=== PATIENT | female | born 1935 | race Caucasian/White ===

== ENCOUNTER 2018-10-09 17:43 | Inpatient (IN) ==
--- NOTE | 2018-10-09 18:20 | PROVIDER DOCUMENTATION ---
HPI-Chest Pain - General Chief Complaint: Chest Pain Stated Complaint: HURT RIBS Time Seen by Provider: 10/09/18 18:16 Source: patient Allergies/Adverse Reactions: Patient Allergies Allergy/AdvReac Type Severity Reaction Status Date / Time No Known Allergies Allergy Verified 10/09/18 17:56 Home Medications: Home Medication List Medication Instructions Recorded Confirmed Last Taken Type ATORVAstatin [Lipitor] 10 mg PO DAILY 06/07/13 06/07/13 Unknown History Albuterol Sulfate [Proair Hfa] 8.5 gm IH 06/07/13 06/07/13 Unknown History Aspirin 81 mg PO DAILY 06/07/13 06/07/13 Unknown History Cholecalciferol (Vitamin D3) 2,000 unit PO 06/07/13 06/07/13 Unknown History [Vitamin D-3] Cyanocobalamin (Vitamin B-12) 50 mcg PO 06/07/13 06/07/13 Unknown History [Vitamin B-12] Estrogens, Conjugated [Premarin] 0.3 mg PO DAILY 06/07/13 06/07/13 Unknown History Glimepiride 06/07/13 06/07/13 Unknown History Hydroxyzine [Atarax] 10 mg PO TID PRN PRN #30 tablet 06/07/13 Unknown Rx Meloxicam [Mobic] 7.5 mg PO DAILY 06/07/13 06/07/13 Unknown History Metformin [Glucophage] 500 mg PO WBREAKFAST 06/07/13 06/07/13 Unknown History Omeprazole 40 mg PO 06/07/13 06/07/13 Unknown History Pentoxifylline 400 mg PO 06/07/13 06/07/13 Unknown History Vitamin C 500 mg/15 ml Liquid 06/07/13 06/07/13 Unknown History Vitamin E 30 ml TP 06/07/13 06/07/13 Unknown History - History of Present Illness-CP Nature of Presenting Problem: patient is a 83 yowf presenting to the ED for substernal chest pain. she reports this pain started 2 days ago and it comes and goes. describes the pain as an ac quoc and burning pain. she denies any SOB, dizziness, NVD, syncope, diaphoresis, or any other symptoms. patient reports pain on palpation. she is in no distress. non toxic in appearance. Location: reports: substernal Chest Pain Radiation: reports: no radiation Quality of Pain: reports: aching, burning Severity in ED: mild Onset/Duration: 2 days ago Timing: intermittent Context/Activities at Onset: reports: none Associated Symptoms: denies: back pain, diaphoresis, dizziness, fatigue, fever/chills, nausea, shortness of breath, syncope, vomiting Nitro Today/Relief: no nitro taken today Aspirin Treatment Today: no aspirin today Similar Symptoms Previously?: No Recently Seen Here or By Another Healthcare Provider: No Review of Systems - Adult - REVIEW OF SYSTEMS - ADULT Constitutional: reports: no symptoms reported. denies: chills, fever Eyes: reports: no symptoms reported Ears, Nose, Mouth & Throat: reports: no symptoms reported Cardiovascular: reports: chest pain. denies: palpitations, syncope Respiratory: reports: no symptoms reported. denies: cough, shortness of breath, wheezing Gastrointestinal: reports: no symptoms reported. denies: abdominal pain, diarrhea, nausea, vomiting Genitourinary: reports: no symptoms reported Musculoskeletal: reports: no symptoms reported. denies: back pain Integumentary: reports: no symptoms reported Neurological: reports: no symptoms reported. denies: dizziness/vertigo, headache/migraines Psychiatric: reports: no symptoms reported Endocrine: reports: no symptoms reported Hematologic/Lymphatic: reports: no symptoms reported Allergic/Immunologic: reports: no symptoms reported All Other Systems: Reviewed and Negative Past History - Adult - PAST MEDICAL HISTORY-ADULT Review of Records: reports: Old Records Reviewed, Nursing Assessment Review, Medications Reviewed, Social history reviewed & non-contributory. Major Childhood Illnesses: reports: denies history Cardiovascular: reports: HTN Respiratory: reports: asthma Gastrointestinal: reports: denies history Obstetrical/Gynecological: reports: denies history Genitourinary: reports: denies history Musculoskeletal: reports: denies history Neurological: reports: denies history Endocrine/Immune: reports: Diabetes Other Conditions: reports: denies history - PRIOR SURGERIES/PROCEDURES Surgical/Procedure History: reports: cholecystectomy, hysterectomy, other (oopherectomy) - FAMILY HISTORY Family History: reviewed, not pertinent - SOCIAL HISTORY Smoking: denies Physical Exam-General - PHYSICAL EXAM-ADULT Initial Vital Signs Reviewed: Yes - CONSTITUTIONAL General Appearance: appears well, alert, no apparent distress, thin - EYES Eyes: PERRL/EOMI - HEAD, EARS, NOSE, MOUTH & THROAT HENMT: normocephalic/atraumatic, moist mucous membranes, normal ENT inspection - NECK Neck: non-tender, full range of motion, supple - RESPIRATORY Respiratory: lungs clear, normal breath sounds, no pleuratic chest pain, no respiratory distress, no accessory muscle use, other (pain to substernal area) - CARDIOVASCULAR Cardiovascular: regular rate, rhythm, no edema, no JVD - GASTROINTESTINAL (ABDOMEN) Abdominal Exam: normal bowel sounds, non tender, soft - LYMPHATIC Lymphatic: no adenopathy - MUSCULOSKELETAL Back Exam: normal inspection, no CVA tenderness, no vertebral tenderness Extremity: normal range of motion, non-tender, normal gait - SKIN Integumentary: normal color, normal turgor, warm/dry - NEUROLOGIC Neurologic: grossly normal, no motor/sensory deficits - PSYCHIATRIC Psych/Mental Status: normal mood/affect, normal thought content, normal thought process, oriented x 3 - HEART Score HEART Score: History: Highly Suspicious HEART Score: ECG: Normal HEART Score: Age: > or = 65 Years HEART Score: Risk Factors for Atherosclerotic Disease: > or = 3 Risk Factors or History of Atherosclerotic Disease HEART Score: Troponin: < or = Normal Limit Total HEART Score:: 6 Progress - PLAN OF CARE/RESULTS Progress/Plan/Lab Results: Vital Signs - 8 hr 10/09/18 17:47 Temperature 98.1 F Pulse Rate 91 H Respiratory Rate 20 Blood Pressure 173/80 O2 Sat by Pulse Oximetry 97 Laboratory Results - last 24 hr 10/09/18 10/09/18 10/09/18 18:35 18:35 18:35 WBC 6.64 RBC 4.05 L Hgb 11.5 L Hct 35.1 L MCV 86.7 MCH 28.4 MCHC 32.8 L RDW Std Deviation 13.9 Plt Count 179 MPV 10.3 Immature Gran % (Auto) 0.2 Neut % (Auto) 75.7 H Lymph % (Auto) 14.3 L Grundy % (Auto) 8.1 Eos % (Auto) 1.5 Baso % (Auto) 0.2 Immature Gran # (Auto) 0.01 Neut # (Auto) 5.03 Lymph # (Auto) 0.95 L Grundy # (Auto) 0.54 Eos # (Auto) 0.10 Baso # (Auto) 0.01 PT INR PTT (Actin FS) Specimen Type Sample Site pH pCO2 pO2 HCO3 Base Excess Oxyhemoglobin ABG O2 Sat (Calculated) ABG O2 Saturation ABG Carboxyhemoglobin ABG Methemoglobin Bob Test A-a O2 Difference Total Hemoglobin Lactate Blood Gas Modality FiO2 % Sodium Potassium Chloride Carbon Dioxide Anion Gap BUN Creatinine Estimated GFR/1.73 m2 BUN/Creatinine Ratio Glucose Calculated Osmolality Calcium Total Bilirubin AST ALT Alkaline Phosphatase Creatine Kinase 78 Troponin T < 0.010 Total Protein Albumin Globulin Albumin/Globulin Ratio Acetone Level 10/09/18 10/09/18 10/09/18 18:35 18:35 18:35 WBC RBC Hgb Hct MCV MCH MCHC RDW Std Deviation Plt Count MPV Immature Gran % (Auto) Neut % (Auto) Lymph % (Auto) Grundy % (Auto) Eos % (Auto) Baso % (Auto) Immature Gran # (Auto) Neut # (Auto) Lymph # (Auto) Grundy # (Auto) Eos # (Auto) Baso # (Auto) PT 15.5 INR 1.17 PTT (Actin FS) 30.6 Specimen Type Sample Site pH pCO2 pO2 HCO3 Base Excess Oxyhemoglobin ABG O2 Sat (Calculated) ABG O2 Saturation ABG Carboxyhemoglobin ABG Methemoglobin Bob Test A-a O2 Difference Total Hemoglobin Lactate Blood Gas Modality FiO2 % Sodium 133 L Potassium 4.2 Chloride 96 L Carbon Dioxide 25 Anion Gap 13 BUN 21 Creatinine 0.9 Estimated GFR/1.73 m2 60 BUN/Creatinine Ratio 23 Glucose 518 H* Calculated Osmolality 293 Calcium 8.7 L Total Bilirubin 0.70 AST 16 ALT 7 L Alkaline Phosphatase 91 Creatine Kinase Troponin T Total Protein 7.9 Albumin 3.9 Globulin 4.0 Albumin/Globulin Ratio 1.0 Acetone Level NEGATIVE 10/09/18 20:09 WBC RBC Hgb Hct MCV MCH MCHC RDW Std Deviation Plt Count MPV Immature Gran % (Auto) Neut % (Auto) Lymph % (Auto) Grundy % (Auto) Eos % (Auto) Baso % (Auto) Immature Gran # (Auto) Neut # (Auto) Lymph # (Auto) Grundy # (Auto) Eos # (Auto) Baso # (Auto) PT INR PTT (Actin FS) Specimen Type ARTERIAL Sample Site R BRACHIAL pH 7.50 H pCO2 35 pO2 76 HCO3 28.1 H Base Excess 4.1 H Oxyhemoglobin 95.5 ABG O2 Sat (Calculated) 15.5 ABG O2 Saturation 98.8 ABG Carboxyhemoglobin 2.10 ABG Methemoglobin 1.2 Bob Test YES A-a O2 Difference 30.0 Total Hemoglobin 11.5 Lactate 1.70 Blood Gas Modality ROOM AIR FiO2 % 21.0 Sodium Potassium Chloride Carbon Dioxide Anion Gap BUN Creatinine Estimated GFR/1.73 m2 BUN/Creatinine Ratio Glucose Calculated Osmolality Calcium Total Bilirubin AST ALT Alkaline Phosphatase Creatine Kinase Troponin T Total Protein Albumin Globulin Albumin/Globulin Ratio Acetone Level Orders Category Date Time Status Admit - [facility] Routine AdmDCTranf 10/09/18 20:37 Active Activity - Up Ad Arabella ORDERED Care 10/09/18 20:37 Active Call Admitting on Arrival AT ADMISSION Care 10/09/18 20:37 Active Neurological Check PRN Care 10/09/18 20:37 Active Resuscitation Status Routine Care 10/09/18 20:37 Ordered Saline Loc DIRECTED Care 10/09/18 20:37 Active Vital Signs Order ROUTINE Care 10/09/18 20:37 Active Z-Document. for Tele Applied ORDERED Care 10/09/18 20:37 Active Heart Healthy Diet Diet 10/09/18 20:[address] THORAX W/O CONTRAST [CT] Stat Exams 10/09/18 20:39 Ordered cxr [CHEST-2 VIEWS] [RAD] Stat Exams 10/09/18 17:57 Completed ABG [RESP] Routine Lab 10/09/18 20:09 Completed CBC WITH ELECTRONIC DIFF [HEME] Stat Lab 10/09/18 18:35 Completed CK PROFILE [SP CHEM] Q6HR Lab 10/10/18 02:00 Ordered CK PROFILE [SP CHEM] Q6HR Lab 10/10/18 08:00 Ordered CK PROFILE [SP CHEM] Q6HR Lab 10/10/18 14:00 Ordered CK PROFILE [SP CHEM] Stat Lab 10/09/18 18:35 Completed COMPREHENSIVE METABOLIC PANEL [CHEM] Stat Lab 10/09/18 18:35 Completed Ketone [ACETONE SERUM] [CHEM] Stat Lab 10/09/18 18:35 Completed PROTIME WITH INR [COAG] Stat Lab 10/09/18 18:35 Completed PTT [COAG] Stat Lab 10/09/18 18:35 Completed TROPONIN T Q6HR Lab 10/10/18 02:00 Ordered TROPONIN T Q6HR Lab 10/10/18 08:00 Ordered TROPONIN T Q6HR Lab 10/10/18 14:00 Ordered TROPONIN T Stat Lab 10/09/18 18:[address] W/POSS RFLX CULT [URINALYSIS] Stat Lab 10/09/18 19:40 Uncollected 0.9% Sodium Chloride Inj [Ns] 1,000 ml Med 10/09/18 20:37 Active IV 75 mls/hr Insulin Human Regular (Humble [Humulin R (Humble)] Med 10/09/18 19:55 Discontinued 10 units .ROUTE .STK-MED ONE Insulin Human Regular [Humulin R] Med 10/09/18 19:45 Discontinued 10 unit IV NOW ONE Piperacillin/Tazobactam [Zosyn] 3.375 gm Med 10/09/18 20:45 Ordered 0.9% Sodium Chloride Inj [Ns] 50 ml IV Q6H Telemetry [OM.EQ] Routine Oth 10/09/18 20:37 Active EKG [EKG] Stat Ther 10/09/18 17:57 Draft Limited Echocardiogram Stat Ther 10/10/18 06:00 Ordered Transfer/Admit Order [TRANSFER] Routine Transfer 10/09/18 20:43 Ordered discussed plan of care with patient- she understands and agrees with plan of care and denies any questions at this time. discussed plan of care with Dr. Artis- he suggests admission. called hospitalist. Result Diagrams: 10/09/18 18:35 10/09/18 18:35 - EKG 1 Time of EKG reading by physician:: 18:09 EKG Read and Signed by:: Mehran Mcgowan EKG Interpretation (*Must complete 3 of following elements*): Normal Rate: 86 Rhythm: sinus [place]: normal QRS: normal NV Interval: normal ST Wave: normal - XRAY 1 XRAY Study: Chest Impression: See EMR Report (Signed EXAM: CHEST-2 VIEWS HISTORY: chest pain TECHNIQUE: Chest two views COMPARISON: 09/22/2015 FINDINGS: Poor inspiratory effort. No cardiomegaly. There are increased interstitial markings throughout both lungs. These are more prominent than on the prior study. No pleural effusions. There is a compression fracture to the T12 vertebra which was not present on the prior exam. IMPRESSION: Worsening fibrosis versus fibrosis and underlying infiltrates. Electronically signed by Anand Lacey 10/09/2018 7:11 PM 10/09/18 191 Interpreting Physician: Anand Lacey MD Dictated Date/Time: 10/09/181909 cc: Mehran Mcgowan MD; Shital James MD) - CONSULTS/PCP/HOSPITALIST Notification #1 *Consult/PCP/Hospitalist*: Dr. Diez Time Discussed: 20:30 Reason/Comments: admit for CP Consult Disposition: Admit Departure - Departure Date of Disposition Decision: 10/09/18 Time of Disposition Decision: 19:38 DIAGNOSIS: Chest pain Qualifiers: Chest pain type: unspecified Qualified Code(s): R07.9 - Chest pain, unspecified Disposition: ADMITTED INPATIENT 09 Certified Medical Emergency: Emergent Condition: Stable Referrals and Follow-Ups: Shital James MD [Primary Care Provider] - - Critical Care Note This patient required my direct & personal management of CC.: No Attestation - Physician/ NICOLE Attestation Patient care was provided by Advanced Practice Provider:: Yes Advanced Practice Provider:: Guera Lopez Advanced Practice Provider documentation review:: The Mid-level provider documentation, treatment plan and medical decision making was reviewed by the physician who agrees with all treatment and medical decision making by the P. The physician spent face to face time with patient:: No Advanced Practice Provider documentation review:: Supervising physician onsite and consulted in the evaluation and care of this patient. The physician did not have a face to face encounter with the patient.
--- NOTE | 2018-10-09 18:30 | EKG Report ---
Test Performed on : 10/09/2018 6:03:33 PM Test Reason : chest pain Blood Pressure : / mmHG Vent. Rate : 086 BPM Atrial Rate : 086 BPM P-R Int : 164 ms QRS Dur : 090 ms QT Int : 358 ms P-R-T Axes : 074 077 068 degrees QTc Int : 428 ms Normal sinus rhythm. Normal ECG No previous ECGs available Unconfirmed Result
[2018-10-09 18:54] LABS: BASO# 0.01 X1000 (0.0-0.2); BASO% 0.2 % (0.0-0.8); EOS% 1.5 % (0.0-10.0); HEMATOCRIT 35.1 % (37.0-47.0); HEMOGLOBIN 11.5 g/dL (12.0-16.0); IMM GRAN# 0.01 X1000 (0.0-0.04); IMM GRAN% 0.2 % (0.0-0.5); LYMPH# 0.95 X1000 (1.2-3.4); LYMPH% 14.3 % (20.5-51.1); MCH 28.4 PG (27-31); MCHC 32.8 g/dL (33-37); MCV 86.7 FL (81-99); MONO# 0.54 X1000 (0.11-0.59); MONO% 8.1 % (1.7-9.3); MPV 10.3 FL (7.4-10.4); NEUT# 5.03 X1000 (1.4-6.5); NEUT% 75.7 % (42.2-75.2); PLT 179 X1000 (130-400); RBC 4.05 XMIL (4.2-5.4); RDW 13.9 % (11.5-14.5); WBC 6.64 X1000 (4.8-10.8)
--- NOTE | 2018-10-09 19:14 | Diag Imaging Result Doc PS360 ---
EXAM: CHEST-2 VIEWS HISTORY: chest pain TECHNIQUE: Chest two views COMPARISON: 09/22/2015 FINDINGS: Poor inspiratory effort. No cardiomegaly. There are increased interstitial markings throughout both lungs. These are more prominent than on the prior study. No pleural effusions. There is a compression fracture to the T12 vertebra which was not present on the prior exam. IMPRESSION: Worsening fibrosis versus fibrosis and underlying infiltrates. Electronically signed by Anand Lacey 10/09/2018 7:11 PM
[2018-10-09 19:19] LABS: INR 1.17; PROTIME 15.5 Seconds (11.0-16.0)
[2018-10-09 19:20] LABS: PTT 30.6 Seconds (22.3-41.8)
[2018-10-09 19:24] LABS: ALBUMIN 3.9 g/dL (3.5-5.0); CALCIUM 8.7 mg/dL (8.8-10.2); CREATININE 0.9 mg/dL (0.5-0.9); POTASSIUM 4.2 mmol/L (3.5-5.1); TOTAL BILIRUBIN 0.7 mg/dL (0.20-1.00); TOTAL PROTEIN 7.9 g/dL (6.3-8.3)
[2018-10-09] MEDS ORDERED: HUMULIN R IV ONE (19:45)
[2018-10-09] MEDS ORDERED: HUMULIN R (PARKWAY) ONE (19:55)
[2018-10-09 20:29] LABS: BE 4.1 mmoll (-3.0-3.0); BLOOD TYPE ARTERIAL; HCO3-(ACT) 28.1 mmoll (20.0-26.0); PCO2(98.6) 35 mmHg (35-45); PO2(98.6) 76 mmHg (60-100); SAMPLE BLOOD; SAO2 98.8 % (95.0-100.0)
[2018-10-09 20:30] LABS: METHB 1.2 % (0.0-1.5); O2(CT) 15.5 mL/dL (15.0-23.0); O2HB 95.5 % (95.0-99.0); THB 11.5 g/dL (11.5-17.4)
[2018-10-09 20:33] LABS: ALLEN TEST YES; MODALITY ROOM AIR
[2018-10-09] MEDS ORDERED: NS 1,000 ML IV ONE (20:37)
[2018-10-09] MEDS ORDERED: HUMULIN R (PARKWAY) SUBQ ONE (21:45)
[2018-10-09] MEDS: ZOSYN 3.375 GM in NS 50 ML IV SCH (23:06)
[2018-10-10] MEDS: ZOSYN 3.375 GM in NS 50 ML IV SCH ×2 (04:15→08:35)
[2018-10-10 06:17] LABS: URINE BACTERIA 2+ /HFP; URINE EPITHELIAL CELLS <10 /HPF (<10); URINE SOURCE CLEAN CATCH; URINE WBC <10 /HPF (<10)
[2018-10-10 06:18] LABS: CLARITY CLEAR (CLEAR); COLOR YELLOW
[2018-10-10 06:19] LABS: BILIRUBIN URINE NEGATIVE (NEGATIVE); BLOOD URINE 1+ (NEGATIVE); KETONE URINE TRACE mg/dL (NEGATIVE); LEUKOCYTES URINE TRACE (NEGATIVE); NITRITE URINE POSITIVE (NEGATIVE); PROTEIN URINE TRACE mg/dL (NEGATIVE); UROBILINOGEN URINE NORMAL
--- NOTE | 2018-10-10 06:40 | Diag Imaging Result Doc PS360 ---
CT THORAX W/O CONTRAST - 10/09/2018 INDICATION: cp COMPARISON: Previous chest x-rays FINDINGS: There is no adenopathy. Heart size is normal. There are cholecystectomy clips. Otherwise upper abdominal images are unremarkable. There is extensive coarse peripheral urinary fibrosis. There is also mild bronchiectasis in the lung bases. No infiltrates throughout the lungs otherwise. There is a central compression fracture of T12 indicating an osteoporotic fracture. IMPRESSION: 1. Severe worsening chronic appearing pulmonary fibrosis. Mild bronchiectasis. 2. T12 compression fracture. This exam was performed using automated exposure control, adjustment of mA or kV according to patient size, and/or use of iterative reconstruction technique Electronically signed by Lacho Quiros 10/10/2018 6:37 AM
[2018-10-10] MEDS: HUMULIN R (PARKWAY) SUBQ SCH ×2 (08:49→12:00)
[2018-10-10] MEDS ORDERED: PNEUMOVAX 23 IM ONE (12:15)
[2018-10-10 12:20] LABS: HEMOGLOBIN A1C 8.7 % (4.8-6.0)
[2018-10-10 12:24] VITALS: BP 156/63
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
--- NOTE | 2018-10-10 13:54 | ECHO REPORT ---
ORDER DATE: 10/10/2018 INTERPRETING PHYSICIAN: Dr. Syed Ortega. ECHOCARDIOGRAPHIC MEASUREMENTS: 1. Interventricular septum: 0.8 cm. 2. Left ventricular posterior wall: 0.8 cm. 3. Diastolic diameter: 4.0 cm. 4. Left atrium: 3.4 cm. 5. Aorta: 2.7 cm. SUMMARY OF THE 2-DIMENSIONAL IMAGIN. Mitral valve was normal. 2. Aortic valve leaflets where calcified, trileaflet. 3. Pulmonic valve was normal. There is mild pulmonary regurgitation. 4. Tricuspid valve was normal. 5. 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 6. Normal left ventricular cavity size. Estimated ejection fraction of 70%. There is diastolic dysfunction. 7. Mild tricuspid regurgitation. Peak velocity across the tricuspid valve was 3 m/sec. 8. Pulmonary artery systolic pressure of 46 mmHg. 9. There is mild mitral regurgitation. 10. Peak velocity across the aortic valve was 2.2 m/sec. Aortic valve area by VTI was 0.8 sq cm. Aortic valve area by planimetry was 1 sq cm. There is moderate aortic stenosis associated with aortic regurgitation which is moderate. 11. There is low gradient, low-flow aortic stenosis. 12. There is left atrial enlargement. 13. There is no pericardial effusion or obvious intracardiac mass or thrombus seen. cc: Syed Ortega MD
[2018-10-10] MEDS ORDERED: GLUCOPHAGE PO SCH (17:00)
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
== END 2018-10-10 13:15 | disposition home or self-care (01) | DRG 313 ==
LOC: P.ED 17:43 → P.MEDSURG 21:08
PROVIDERS: ATTEND Internal Medicine